=== PATIENT | male | born 1995 | race Caucasian/White ===

== ENCOUNTER 2017-12-09 11:00 | Emergency (ER) | payer OTHER ==
[~2017-12-09] VITALS: Ht 188 cm; Wt 93.3 kg
[2017-12-09 11:21] VITALS: BP 131/77
[2017-12-09] MEDS ORDERED: NEURONTIN300 MG PO (11:50)
== END 2017-12-09 12:05 | disposition home or self-care (01) ==
LOC: EME 11:00
DX: R20.2 Paresthesia of skin (principal)
CPT/HCPCS: 99281; 99283